=== PATIENT | male | born 1970 | race Asian ===

== ENCOUNTER 2023-05-11 22:50 | Observation (INO) | payer OTHER ==
[2023-05-11 23:00] VITALS: RESP 18
[2023-05-12 00:47] LABS: POTASSIUM 3.5 mmol/L (3.5-5.1)
[2023-05-12 00:50] LABS: BASO % 0.9 % (0-2.0); EOS % 1.7 % (0-4.5); HEMATOCRIT 40.7 % (35.4-49); HEMOGLOBIN 13.8 GM/dL (11.7-16.9); LYMPH % 56.1 % (8-40); MCH 28.6 pg (25.7-33.7); MCHC 33.9 g/dl (32.0-35.9); MEAN CELL VOLUME 84.5 fl (80-96); MEAN PLT VOLUME 8.6 fl (7.5-11.1); MONO % 6.7 % (3.8-10.2); NEUT % 34.6 % (42.8-82.8); PLATELET COUNT 139 10^3/uL (134-434); RBC 4.82 M/mm3 (4.00-5.60); RDW 15.2 % (11.9-15.9); WHITE BLOOD COUNT 7.4 K/mm3 (4.0-10.0)
[2023-05-12 00:51] LABS: ALBUMIN 3.5 g/dl (3.4-5.0); BLOOD UREA NITROGEN 8.7 mg/dL (7-18); CALCIUM 8.5 mg/dL (8.5-10.1)
[2023-05-12 00:54] LABS: CREATININE 0.6 mg/dL (0.55-1.3)
[2023-05-12] MEDS ORDERED: diazePAM CARPU-JECT 10 MG/2 ML DISP.SYRIN ONE (00:54)
[2023-05-12 00:56] LABS: TOT PROT 8.2 g/dl (6.4-8.2)
[2023-05-12] MEDS: diazePAM CARPU-JECT 10 MG/2 ML DISP.SYRIN IVPUSH ONE (00:59)
[2023-05-12] MEDS: SODIUM CHLORIDE 500 ML IV STA (00:59)
[2023-05-12 01:06] LABS: LACTIC ACID 4.5 mmol/L (0.4-2.0)
[2023-05-12] MEDS: FOLIC ACID INJECTION - 1 MG, THIAMINE HCL 100 MG, MULTIVIT INJECTION ADULT 10 ML in SOD... IVPB ONE ×2 (01:40→06:58)
[2023-05-12] MEDS: DEXTROSE 5%-NORMAL SALINE 1,000 ML IV ONE (01:40)
[2023-05-12] MEDS ORDERED: LORazepam 1 MG TABLET PO PRN (06:05)
[2023-05-12] MEDS ORDERED: ONDANSETRON 4 MG/2 ML VIAL IVPUSH PRN (06:10)
[2023-05-12] MEDS: SODIUM CHLORIDE 1,000 ML IV SCH (06:37)
[2023-05-12] MEDS: LORazepam 2 MG TABLET PO SCH (06:37)
[2023-05-12 07:01] LABS: ACTIVATED PTT 34.4 SECONDS (25.2-36.5); INR 1.12 (0.83-1.09)
[2023-05-12] MEDS: INSULIN ASPART SLIDING SCALE (NOVOLOG) 1 VIAL SQ SCH (07:47)
[2023-05-12] MEDS ORDERED: MELATONIN 5 MG TABLETS PO PRN (08:54)
[2023-05-12 08:57] LABS: BASO % 0.9 % (0-2.0); EOS % 1.6 % (0-4.5); HEMATOCRIT 37.3 % (35.4-49); HEMOGLOBIN 12.4 GM/dL (11.7-16.9); LYMPH % 43.7 % (8-40); MCH 28.2 pg (25.7-33.7); MCHC 33.2 g/dl (32.0-35.9); MEAN CELL VOLUME 84.9 fl (80-96); MEAN PLT VOLUME 8.5 fl (7.5-11.1); NEUT % 46.8 % (42.8-82.8); PLATELET COUNT 123 10^3/uL (134-434); RBC 4.39 M/mm3 (4.00-5.60); WHITE BLOOD COUNT 6.7 K/mm3 (4.0-10.0)
[2023-05-12 09:02] LABS: COCAINE, UR NEGATIVE (NEGATIVE); METHADONE, UR NEGATIVE (NEGATIVE); OPIATES, URI NEGATIVE (NEGATIVE); URINE AMPHETAMINES NEGATIVE (NEGATIVE); URINE BARBITURATES NEGATIVE (NEGATIVE)
[2023-05-12 09:03] LABS: URINE BENZODIAZEPINES NEGATIVE (NEGATIVE)
[2023-05-12 09:04] LABS: PHENCYCLIDINE,URINE NEGATIVE (NEGATIVE)
[2023-05-12 09:15] LABS: POTASSIUM 3.1 mmol/L (3.5-5.1)
[2023-05-12 09:17] LABS: ALBUMIN 3.3 g/dl (3.4-5.0); BLOOD UREA NITROGEN 7.7 mg/dL (7-18); CALCIUM 7.7 mg/dL (8.5-10.1)
[2023-05-12 09:20] LABS: CREATININE 0.5 mg/dL (0.55-1.3)
[2023-05-12 09:22] LABS: BILIRUBIN,TOTAL 1.2 mg/dL (0.2-1); TOT PROT 7.6 g/dl (6.4-8.2)
[2023-05-12 09:33] LABS: LACTIC ACID 3.4 mmol/L (0.4-2.0)
[2023-05-12] MEDS: ENOXAPARIN NA (PORCINE) 40 MG/0.4 ML DISP.SYRIN SQ SCH (10:36)
[2023-05-12] MEDS: POTASSIUM CHLORIDE ORAL LIQUID 20 MEQ/15 ML PO ONE (10:36)
[2023-05-12] MEDS: FOLIC ACID 1 MG TABLET (FP) PO SCH (10:36)
[2023-05-12] MEDS: THIAMINE HCL 100 MG TABLET (FP) PO SCH (10:37)
[2023-05-12] MEDS: LORazepam 1 MG TABLET PO SCH ×2 (11:51→17:42)
[2023-05-12] MEDS: PANTOPRAZOLE 40 MG TABLET PO SCH (11:52)
[2023-05-12] MEDS: IBUPROFEN 200 MG TABLET PO ONE (11:53)
[2023-05-12 12:39] VITALS: BMI 30.9
[2023-05-12] MEDS: LOSARTAN POTASSIUM 25 MG TABLET PO SCH (15:17)
[2023-05-12] MEDS: LACTULOSE 20 GM/30 ML UDC (FOR ORAL USE ONLY) PO ONE (15:17)
[2023-05-12] MEDS ORDERED: LOSARTAN POTASSIUM 25 MG TABLET PO SCH (16:00)
[2023-05-12] MEDS: MELATONIN 5 MG TABLETS PO ONE (22:18)
[2023-05-12] MEDS: LATANOPROST 0.005% OPHTH SOLN 2.5ML BOTTLE OU SCH (22:20)
[2023-05-13] MEDS: LORazepam 1 MG TABLET PO SCH (06:12)
[2023-05-13 08:52] LABS: BASO % 0.6 % (0-2.0); EOS % 2.5 % (0-4.5); HEMATOCRIT 36.5 % (35.4-49); HEMOGLOBIN 11.9 GM/dL (11.7-16.9); LYMPH % 41.7 % (8-40); MCH 27.9 pg (25.7-33.7); MCHC 32.6 g/dl (32.0-35.9); MEAN CELL VOLUME 85.7 fl (80-96); MEAN PLT VOLUME 8.9 fl (7.5-11.1); MONO % 7.2 % (3.8-10.2); PLATELET COUNT 104 10^3/uL (134-434); RBC 4.26 M/mm3 (4.00-5.60); RDW 15.6 % (11.9-15.9); WHITE BLOOD COUNT 5.6 K/mm3 (4.0-10.0)
[2023-05-13 09:21] LABS: CALCIUM 7.9 mg/dL (8.5-10.1)
[2023-05-13 09:22] LABS: ALBUMIN 3.3 g/dl (3.4-5.0); BLOOD UREA NITROGEN 4.6 mg/dL (7-18); MAGNESIUM 1.2 mg/dL (1.8-2.4)
[2023-05-13 09:25] LABS: BILIRUBIN,TOTAL 1.8 mg/dL (0.2-1); CREATININE 0.6 mg/dL (0.55-1.3); PHOSPHOROUS 2.2 mg/dL (2.5-4.9)
[2023-05-13 09:26] LABS: TOT PROT 7.5 g/dl (6.4-8.2)
[2023-05-13] MEDS: LOSARTAN POTASSIUM 50 MG TABLET PO SCH (09:27)
[2023-05-13] MEDS ORDERED: POTASSIUM CHLORIDE TABS 20 MEQ TABLET.ER (FP) PO ONE (09:38)
[2023-05-13] MEDS: MAGNESIUM SULFATE IN WATER 2 GM/50 ML IVPB IVPB ONE (10:17)
[2023-05-13 10:59] VITALS: BP 147/82; PULSE 83; TEMP 97.8
[2023-05-13] MEDS: POTASSIUM CHLORIDE ORAL LIQUID 20 MEQ/15 ML PO ONE ×2 (11:10)
[2023-05-14] MEDS ORDERED: LORazepam 0.5 MG TABLET PO PRN
[2023-05-14] MEDS ORDERED: LORazepam 0.5 MG TABLET PO SCH (05:00)
[2023-05-15] MEDS ORDERED: LORazepam 0.5 MG TABLET PO ONE (05:00)
== END 2023-05-13 12:03 | disposition home or self-care (01) ==
LOC: JER 22:50 → UNDOADMOB 05-12 03:32 → INTOOBSV 05-12 03:32 → JERBED 05-12 03:32 → J5S 05-12 09:36 → JERBED 05-12 10:44 → J5S 05-12 10:44
PROVIDERS: ADMIT Internal Medicine; ATTEND Nurse Practitioner
PROC: 3E0337Z Introduction of Electrolytic and Water Balance Substance into Peripheral Vein, Percutaneous Approach (ICD-10-PCS; principal; 2023-05-12)
PROC: 3E033NZ Introduction of Analgesics, Hypnotics, Sedatives into Peripheral Vein, Percutaneous Approach (ICD-10-PCS; 2023-05-12)
PROC: 3E023GC Introduction of Other Therapeutic Substance into Muscle, Percutaneous Approach (ICD-10-PCS; 2023-05-12)
DX: F10.929 Alcohol use, unspecified with intoxication, unspecified (principal); K70.10 Alcoholic hepatitis without ascites; E87.29 Other acidosis; R53.83 Other fatigue; R74.01 Elevation of levels of liver transaminase levels; E11.9 Type 2 diabetes mellitus without complications; I10 Essential (primary) hypertension; E78.5 Hyperlipidemia, unspecified; E72.4 Disorders of ornithine metabolism; E87.6 Hypokalemia; H40.9 Unspecified glaucoma
CPT/HCPCS: 36415; 71045-TC-FY; 74018-TC-FY; 76700-TC; 80053; 80307; 82140; 82962; 83036; 83605; 83690; 83735; 84100; 84443; 84484; 85025; 85610; 85730; 86704; 86708; 86803; 87340; 87517; 93005; 93010; 96361; 96365; 96367; 96372; 96375; 99285-25; G0378